=== PATIENT | male | born 1955 | race Caucasian/White ===

== ENCOUNTER 2021-12-06 10:33 | Observation (INO) | payer MEDICARE, OTHER ==
[2021-12-06] MEDS ORDERED: Sodium Chloride 0.9% 10 ML Syringe FLUSH PRN (10:40)
[2021-12-06 11:14] LABS: ANION GAP 14.4 mmol/L (5-15)
[2021-12-06 11:36] LABS: PTT,PARTIAL THROMBOPLSTIN TIME 28.5 SEC (22.8-31.4)
[2021-12-06] MEDS ORDERED: Aspirin 325 MG Tab.EC PO SCH (12:00)
[2021-12-06] MEDS: Clopidogrel 75 MG Tab PO SCH (12:49)
[2021-12-06] MEDS ORDERED: Albuterol 8 GM Inhaler INH PRN (16:07)
[2021-12-06] MEDS: Famotidine 20 MG Tab**OWN MED PO SCH (20:53)
[2021-12-06] MEDS: GLIPIZIDE 5 MG PO SCH (20:53)
[2021-12-06] MEDS: atorvaSTATin 40 MG Tab**OWN MED PO SCH (20:53)
[2021-12-06] MEDS ORDERED: ATORVASTATIN 80 MG PO SCH (21:15)
[2021-12-07 06:11] VITALS: PULSE 50
[2021-12-07] MEDS: atorvaSTATin 40 MG Tab**OWN MED PO SCH (07:42)
[2021-12-07] MEDS: Famotidine 20 MG Tab**OWN MED PO SCH (08:07)
[2021-12-07] MEDS: Clopidogrel 75 MG Tab PO SCH (08:07)
[2021-12-07] MEDS: GLIPIZIDE 5 MG PO SCH (08:07)
[2021-12-07 08:08] VITALS: BP 147/52
[2021-12-07] MEDS ORDERED: LISINOPRIL 20 MG PO SCH (09:00)
[2021-12-07] MEDS ORDERED: Aspirin 81 MG Tab.EC PO SCH (09:00)
[2021-12-07] MEDS ORDERED: Multivitamins with Minerals/Iron/Folic Acid/Lycopene Tab PO SCH (09:00)
[2021-12-07] MEDS ORDERED: Tiotropium Bromide 4 GM Inhalation Spray (2.5mcg/1 dose; 10 doses) INH SCH (09:00)
== END 2021-12-07 10:10 | disposition home or self-care (01) ==
LOC: KA.ED 10:33 → KA.MS 11:43
PROVIDERS: ADMIT Physician Assistant Medical; ATTEND Internal Medicine
DX: R53.1 Weakness (principal); R20.2 Paresthesia of skin; E11.9 Type 2 diabetes mellitus without complications; E78.00 Pure hypercholesterolemia, unspecified; K21.9 Gastro-esophageal reflux disease without esophagitis; I10 Essential (primary) hypertension; J44.9 Chronic obstructive pulmonary disease, unspecified; E78.5 Hyperlipidemia, unspecified; Z79.84 Long term (current) use of oral hypoglycemic drugs; Z79.899 Other long term (current) drug therapy; Z20.822 Contact with and (suspected) exposure to COVID-19
CPT/HCPCS: 36415; 70450; 70496; 70498; 71045; 80053; 84484; 85025; 85610; 85730; 93005; 93010; 99217; 99220; 99285-25; A9270-GY; G0378; U0002

== ENCOUNTER 2024-05-17 14:08 | Emergency (ER) | payer MEDICARE, OTHER ==
[2024-05-17] MEDS: Sodium Chloride 0.9% 1,000 ML IV ONE (14:33)
[2024-05-17 14:51] LABS: ALBUMIN 3.51 g/dL (3.40-5.00); ANION GAP 17.3 mmol/L (5-15); BILIRUBIN TOTAL 0.5 mg/dL (0.2-1.0); CALCIUM 7.4 mg/dL (8.7-10.3); CARBON DIOXIDE,CO2 21.2 mmol/L (21.0-32.0); CREATININE 1.15 mg/dL (0.51-1.17); EST CRCL DRUG DOSING (CG) 62.23 mL/min; POTASSIUM,K 4.5 mmol/L (3.5-5.1); PROTEIN TOTAL,TP 6.2 g/dL (6.4-8.2)
[2024-05-17 14:55] LABS: BASOPHILS ABSOLUTE AUTO 0.02 10^3/uL (0.00-0.10); BASOPHILS PERCENT AUTO 0.5 % (0.0-1.0); EOSINOPHILS ABSOLUTE AUTO 0.03 10^3/uL (0.10-0.30); EOSINOPHILS PERCENT AUTO 0.8 % (1.0-3.0); HEMATOCRIT 27.5 % (40.0-52.0); HEMOGLOBIN 9.4 g/dL (13.0-17.0); IMMATURE GRAN ABSOLUTE AUTO 0.01 10^3/uL (0.00-0.50); IMMATURE GRAN PERCENT AUTO 0.3 % (0.0-5.0); LYMPHOCYTES ABSOLUTE AUTO 0.56 10^3/uL (1.00-4.00); LYMPHOCYTES PERCENT AUTO 14.8 % (20.0-40.0); MEAN CORPUSCULAR HEMOGLOBIN 33.1 pg (27.0-31.0); MEAN CORPUSCULAR HGB CONC 34.2 g/dL (32.0-36.0); MEAN CORPUSCULAR VOLUME 96.8 fL (82.0-92.0); MONOCYTES ABSOLUTE AUTO 0.12 10^3/uL (0.10-0.80); MONOCYTES PERCENT AUTO 3.2 % (2.0-8.0); NEUTROPHILS ABSOLUTE AUTO 3.05 10^3/uL (2.50-7.00); NEUTROPHILS PERCENT AUTO 80.4 % (50.0-70.0); RED BLOOD CELL COUNT 2.84 10^6/uL (4.50-6.00); RED CELL DISTRIBUTION WIDTH 15.6 % (11.5-14.5); WHITE BLOOD CELL COUNT,WBC 3.79 10^3/uL (5.00-10.00)
[2024-05-17] MEDS: Metoprolol Tartrate 5 MG/5 ML SDV IVPUSH ONE ×3 (14:58→16:02)
[2024-05-17 15:02] LABS: PLATELET COUNT,PLT 80 10^3/uL (150-400)
[2024-05-17] MEDS: Metoprolol Tartrate 50 MG Tab PO ONE (16:11)
[2024-05-17 17:53] VITALS: BP 131/70; PULSE 86
== END 2024-05-17 18:35 | disposition home or self-care (01) ==
LOC: KA.ED 14:08
DX: I48.91 Unspecified atrial fibrillation (principal); C34.90 Malignant neoplasm of unspecified part of unspecified bronchus or lung; I10 Essential (primary) hypertension; J44.9 Chronic obstructive pulmonary disease, unspecified; E78.00 Pure hypercholesterolemia, unspecified; E11.9 Type 2 diabetes mellitus without complications; Z88.8 Allergy status to other drugs, medicaments and biological substances; Z79.82 Long term (current) use of aspirin; Z79.84 Long term (current) use of oral hypoglycemic drugs; Z79.899 Other long term (current) drug therapy
CPT/HCPCS: 36415; 80053; 84484; 85025; 96361; 96374; 96376; 99284; A9270; J3490; J7030; 93010